=== PATIENT | female | born 1980 | race Caucasian/White ===

== ENCOUNTER 2018-07-21 16:20 | Outpatient (CLI) | payer MEDICAID ==
[~2018-07-21] VITALS: Ht 162.6 cm; Wt 95.8 kg
[2018-07-21 16:42] VITALS: Ht 162.6 cm; Wt 95.8 kg
[2018-07-21] MEDS ORDERED: PREN1TAB71 PO (16:42)
[2018-07-21 16:43] VITALS: BP 136/80
--- NOTE | 2018-07-21 17:33 | PN ---
Triage Information Date/Time Reason for visit: DFM Weeks of Gestation 26+ /Para 1/0 Diabetes: none Hypertention: none Objective Vital Signs Date Temp Pulse Resp B/P (MAP) Pulse Ox O2 O2 Flow FiO2 Time Delivery Rate 07/21/18 98.0 136/80 16:43 (98) Heart Rate: 140's Contractions: None Disposition: Discharge Assessment/Plan Ultrasound Reviewed +FM Precautions discussed' Questions answered Follow up with provider ANIBAL STEVENS M.D. Jul 21, 2018 17:33
== END 2018-07-21 17:44 | disposition home or self-care (01) ==
LOC: OBT 16:20 → L-D 16:21 → OBT 17:44
PROVIDERS: ATTEND Obstetrics & Gynecology
DX: O36.8120 Decreased fetal movements, second trimester, not applicable or unspecified (principal); O09.512 Supervision of elderly primigravida, second trimester; Z3A.26 26 weeks gestation of pregnancy
CPT/HCPCS: 76815; Z7500; G0463

== ENCOUNTER 2018-10-14 21:57 | Inpatient (IN) | payer MEDICAID ==
[~2018-10-14] VITALS: Ht 162.6 cm; Wt 95.8 kg
[~2018-10-14 21:57] MED LIST: PREN1TAB71 PO
[2018-10-14 22:00] VITALS: BP 118/85; RESP 18
[2018-10-14] MEDS ORDERED: LACTATED RINGER'S 1,000 ML IV PRN (22:21)
[2018-10-14] MEDS ORDERED: LIDOCAINE 1% (MPF) 30 ML INJ INJ PRN (22:30)
[2018-10-14] MEDS ORDERED: IBUPROFEN 600 MG TAB PO PRN (22:30)
[2018-10-14] MEDS ORDERED: MISOPROSTOL 200 MCG TAB PR PRN (22:30)
[2018-10-14] MEDS ORDERED: BUTORPHANOL 2 MG INJ IV PRN (22:30)
[2018-10-14] MEDS ORDERED: OXYTOCIN 30 UNITS/LR 500 ML IV SCH ×2 (22:30)
[2018-10-14] MEDS ORDERED: CARBOPROST 250 MCG INJ IM PRN (22:30)
[2018-10-14] MEDS ORDERED: OXYTOCIN 30 UNITS/LR 500 ML IV PRN (22:30)
[2018-10-14] MEDS ORDERED: METHYLERGONOVINE 0.2 MG INJ IM PRN (22:30)
[2018-10-14] MEDS ORDERED: AMPICILLIN 2 GM/NS (PMX) 100 ML IV ONE (22:30)
[2018-10-14] MEDS: LACTATED RINGER'S 1,000 ML IV SCH (22:42)
--- NOTE | 2018-10-14 23:18 | PREAC ---
Date/Time of Note Date/Time of Note DATE: 10/14/18 TIME: 23:17 Anesthesia Eval and Record Evaluation Time Pre-Procedure Interview DATE: 10/14/18 TIME: 23:17 Age 38 Sex female NPO: Other (na ) Preoperative diagnosis labor Planned procedure epidural Past Medical History Past Medical History: None Surgery & Anesthesia Issues No known issue Meds Anticoagulation: No Beta Arlene within 24 hr: No Reason Beta Arlene not given: Pt. not on B-Arlene Reported Medications Vit No.130/Iron/FA ( Tablet) 1 Each Tablet, 1 EACH PO 07/21/18 Current Medications Lactated Ringer's 1,000 ml @ 125 mls/hr Q8H IV Last administered on 10/14/18at 22:42; Admin Dose 125 MLS/HR; Start 10/14/18 at 22:21 Ampicillin 100 ml @ 100 mls/hr ONCE ONCE IV Last administered on 10/14/18at 22:53; Admin Dose 100 MLS/HR; Start 10/14/18 at 22:30; Stop 10/14/18 at 23:29 Ampicillin 50 ml @ 100 mls/hr Q4H IV ; Start 10/15/18 at 02:30 Butorphanol Tartrate (Stadol) 2 mg Q2H PRN IV .PAIN SCALE 6-10; Start 10/14/18 at 22:30 Lidocaine (Xylocaine 1% (Mpf)) 30 ml ONCE PRN INJ .EPISIOTOMY; Start 10/14/18 at 22:30 Oxytocin/Lactated Ringer's 500 ml @ 500 mls/hr ONCE POST IV ; Start 10/14/18 at 22:30 Oxytocin/Lactated Ringer's 500 ml @ 125 mls/hr POST IV ; Start 10/14/18 at 22:30 Ibuprofen (Motrin) 600 mg ONCE PRN PO .PAIN 1-5; Start 10/14/18 at 22:30 Lactated Ringer's 1,000 ml @ 2,000 mls/hr Q30M PRN IV .ANESTHESIA Last administered on 10/14/18at 22:43; Admin Dose 2,000 MLS/HR; Start 10/14/18 at 22:21 Oxytocin/Lactated Ringer's 500 ml @ 0 mls/hr ONCE PRN IV .VAGINAL BLEEDING; Start 7/3/19 at 22:30 Methylergonovine Maleate (Methergine) 0.2 mg ONCE PRN IM .VAGINAL BLEEDING; Start 10/14/18 at 22:30 Carboprost Tromethamine (Hemabate) 250 mcg ONCE PRN IM .VAGINAL BLEEDING; Start 10/14/18 at 22:30 Misoprostol (Cytotec) 1,000 mcg ONCE PRN IN .VAGINAL BLEEDING; Start 10/14/18 at 22:30 Meds reviewed: Yes Allergies Coded Allergies: No Known Drug Allergies (Verified Allergy, Unknown, 07/21/18) Allergies Reviewed: Yes Labs/Studies Labs Reviewed: Reviewed by anesthesiologist Result Diagram: 10/14/18 2245 Laboratory Tests 10/14/18 22:45 test: N/A Pre-procedure Exam Airway: Adequate mouth opening, Adequate thyromental dist Mallampati: Mallampati III Teeth: Normal Lung: Normal Heart: Normal ASA Physical Status ASA physical status: 2 Emergency: None Pre-operative Attestations Prior to commencing anesthesia and surgery, the patient was re-evaluated, there was verification of: *The patient's identity *The results of appropriate recent lab work and preoperative vital signs *The above evaluation not changing prior to induction *Anesthetic plan, risk benefits, alternative and complications discussed with patient/family; questions answered; patient/family understands, accepts and wishes to proceed. YASMEEN GEE DO Oct 14, 2018 23:18
[2018-10-14] MEDS ORDERED: FENTAnyl 2MCG/ML-ROPIV 0.2% 100 ML ONE (23:20)
[2018-10-14] MEDS ORDERED: FENTAnyl 50 MCG/ML VIAL ONE (23:20)
[2018-10-14] MEDS ORDERED: FENTAnyl 2MCG/ML-ROPIV 0.2% 100 ML BAG EPI SCH (23:30)
[2018-10-14] MEDS ORDERED: NALOXONE (0.4 MG/ML) INJ IV PRN (23:30)
[2018-10-15 01:21] VITALS: Ht 162.6 cm; Wt 95.8 kg
--- NOTE | 2018-10-15 02:01 | PAC ---
Date/Time of Note Date/Time of Note DATE: 10/15/18 TIME: 02:01 Post-Anesthesia Notes Post-Anesthesia Note Last documented vital signs 115/62 80 100% 18 98 Activity: WNL Respiratory function: WNL Cardiovascular function: WNL Mental status: Baseline Pain reasonably controlled: Yes Hydration appropriate: Yes Nausea/Vomiting absent: Yes YASMEEN GEE DO Oct 15, 2018 02:01
--- NOTE | 2018-10-15 02:43 | TRIAGE ---
OB Triage Datetime Report Generated by CPN: 10/15/2018 02:42 Datetime: 10/15/2018 02:36 Interventions: Side to Side; Oxygen Applied; Sterile Vaginal Exam Decelerations: Variable Vaginal Exam Dilatation (cms): 9.0 Effacement (%): 90 Station: 0 Exam By: aberumen Datetime: 10/15/2018 02:21 Decelerations: Variable Comments: VARIABLE DECELERATION FOR 60 SECONDS WITH LOWEST POINT AT 90 BPM Datetime: 10/15/2018 02:17 Stage of : Labor Maternal Assessment Level of Consciousness: Keenly Alert, Responsive DTR's/Clonus: DTRs 2+; No Clonus Headache: Denies Breath Sounds, Left: Clear and Equal Breath Sounds, Right: Clear and Equal Nausea/Vomiting: Denies RUQ Epigastric Pain: Denies Labor Evaluation Frequency: 2-3 Monitor Mode: External Duration (sec)2399: 70-80 Quality: Strong Pattern: Normal: <= 5 Contractions in 10 Minutes Resting Tone Tennyson: Relaxed Interventions: Side to Side; Sterile Vaginal Exam Heart Rate FHR Baseline Rate: 140 Monitor Mode: External US FHR Baseline Changes: No Baseline Change Variability: Moderate 6-25 bpm Accelerations: 15X15 Decelerations: None; Variable Category: Category II Pain Assessment Pain Scale: 0 Pain Presence: None/Denies Membrane Status: Ruptured Datetime: 10/15/2018 01:50 Interventions: Side to Side Decelerations: Variable Comments: VARIABLE DECELERATION FOR 80 SECONDS WITH LOWEST POINT AT 110 BPM. Datetime: 10/15/2018 01:47 Stage of : Labor Maternal Assessment Level of Consciousness: Keenly Alert, Responsive DTR's/Clonus: DTRs 2+; No Clonus Headache: Denies Breath Sounds, Left: Clear and Equal Breath Sounds, Right: Clear and Equal Nausea/Vomiting: Denies RUQ Epigastric Pain: Denies Temperature Route: Oral Labor Evaluation Frequency: 2-3 Monitor Mode: External Duration (sec)2399: 60-80 Quality: Strong Pattern: Normal: <= 5 Contractions in 10 Minutes Resting Tone Tennyson: Relaxed Interventions: Side to Side; Sterile Vaginal Exam Heart Rate FHR Baseline Rate: 125 Monitor Mode: External US FHR Baseline Changes: No Baseline Change Variability: Moderate 6-25 bpm Accelerations: 15X15 Decelerations: None; Variable Pain Assessment Pain Scale: 0 Pain Presence: None/Denies Membrane Status: Ruptured Datetime: 10/15/2018 01:39 Interventions: Side to Side Decelerations: Variable Comments: VARIABLE DECELERATION FOR 40 SECONDS WITH LOWEST FHR AT 80 BPM Datetime: 10/15/2018 01:30 Interventions: Side to Side Decelerations: Variable; Prolonged Comments: PROLONGED VARIABLE WITH LOSS OF CONTACT AND LOWEST RECORDED FHR AT 95 BPM Datetime: 10/15/2018 01:26 Vaginal Exam Dilatation (cms): 9.0 Effacement (%): 90 Station: 0 Exam By: ABERUMEN Datetime: 10/15/2018 01:19 Interventions: Side to Side Decelerations: Variable Comments: VARIABLE DECELERATION FOR 50 SECONDS WITH LOWEST POINT AT 100 BPM Datetime: 10/15/2018 01:17 Stage of : Labor Maternal Assessment Level of Consciousness: Keenly Alert, Responsive DTR's/Clonus: DTRs 2+; No Clonus Headache: Denies Breath Sounds, Left: Clear and Equal Breath Sounds, Right: Clear and Equal Nausea/Vomiting: Denies RUQ Epigastric Pain: Denies Labor Evaluation Frequency: 2-3 Duration (sec)2399: 60-80 Quality: Strong Pattern: Normal: <= 5 Contractions in 10 Minutes Resting Tone Tennyson: Relaxed Interventions: Side to Side Heart Rate FHR Baseline Rate: 140 FHR Baseline Changes: No Baseline Change Variability: Moderate 6-25 bpm Accelerations: 15X15 Decelerations: None; Variable Category: Category II Pain Assessment Pain Scale: 0 Pain Presence: None/Denies Membrane Status: Ruptured Datetime: 10/15/2018 01:09 Decelerations: Variable Comments: VARIABLE DECELERATION FOR 70 SECONDS WITH LOWEST FHR AT 95 BPM Datetime: 10/15/2018 00:56 Interventions: Side to Side Comments: VARIABLE DECELERATION FOR 50 SECONDS WITH LOWEST FHR OF 100 BPM Datetime: 10/15/2018 00:45 Assessment Type: Admission Assessment Vaginal Bleeding: None Maternal Assessment Level of Consciousness: Keenly Alert, Responsive DTR's/Clonus: DTRs 2+; No Clonus Headache: Denies Blurred Vision: No Respiratory Effort: Unlabored; Regular Rhythm; Equal Expansion Breath Sounds, Left: Clear and Equal Breath Sounds, Right: Clear and Equal Nausea/Vomiting: Denies RUQ Epigastric Pain: Denies Lower Extremities Edema: Bilateral Lower Extremities Degree: 1+ Upper Extremities Edema: None Facial Edema: None Fall Risk Assessment History of Falling: (0) No Secondary Diagnosis: (0) No Ambulatory Aid: (0) Bedrest/Nurse Assist IV Therapy: (20) Yes Gait: (0) Normal/Bedrest/Immobile Mental Status: (0) Oriented to Own Ability Fall Score: 20 Fall Risk Score Definition: No Risk: No action required Labor Evaluation Frequency: 2-3 Monitor Mode: External Duration (sec)2399: 50-60 Quality: Strong Pattern: Normal: <= 5 Contractions in 10 Minutes Resting Tone Tennyson: Relaxed Heart Rate FHR Baseline Rate: 140 Monitor Mode: External US Variability: Moderate 6-25 bpm Accelerations: 15X15 Decelerations: None Category: Category I Pain Presence: None/Denies Membrane Status: Ruptured Datetime: 10/15/2018 00:40 Stage of : Labor Maternal Assessment Level of Consciousness: Keenly Alert, Responsive Labor Evaluation Frequency: 140 Monitor Mode: External Duration (sec)2399: 60-90 Quality: Strong Pattern: Normal: <= 5 Contractions in 10 Minutes Resting Tone Tennyson: Relaxed Heart Rate FHR Baseline Rate: 140 Monitor Mode: External US Variability: Moderate 6-25 bpm Accelerations: 15X15 Decelerations: None Category: Category I Datetime: 10/15/2018 00:13 Stage of : Labor Datetime: 10/15/2018 00:10 Labor Evaluation Frequency: 2-3 Monitor Mode: External Quality: Strong Pattern: Normal: <= 5 Contractions in 10 Minutes Resting Tone Tennyson: Relaxed Heart Rate FHR Baseline Rate: 150 Monitor Mode: External US FHR Baseline Changes: No Baseline Change Variability: Moderate 6-25 bpm Accelerations: 15X15 Decelerations: None Category: Category I Pain Assessment Pain Scale: 0 Pain Presence: None/Denies Pain Type: N/A Vaginal Exam Dilatation (cms): 8.0 Effacement (%): 90 Station: 0 Exam By: TING Linton RN Amniotic Fluid Color: Light Meconium Vaginal Bleeding: Small Cervix, Consistency: Soft Cervix, Position: Anterior Presentation 'A': Cephalic Datetime: 10/14/2018 23:58 Time of Arrival: 10/14/2018 21:50 EGA: 38.5 Arrived By: Wheelchair Arrived From: Home Chief Complaint: c/o uc's and leaking Movement: Present Contractions: Regular Contractions: 5 MINUTES Rupture of Membranes: Ruptured Vaginal Bleeding: None Vaginal Discharge: Denies Recent Sexual Intercouse: Denies Abdominal Trauma: Not Applicable Patient Complaints: Contractions Time Provider Notified: 10/14/2018 22:19 Provider Notified: FERMÍNDAANDRE Initial Plan: EFM, SVE Datetime: 10/14/2018 23:52 Vaginal Exam Dilatation (cms): 6.5 Datetime: 10/14/2018 23:51 Labor Evaluation Frequency: 2-3 Monitor Mode: External Duration (sec)2399: 50 Quality: Moderate Pattern: Normal: <= 5 Contractions in 10 Minutes Resting Tone Tennyson: Relaxed Heart Rate FHR Baseline Rate: 150 Monitor Mode: External US FHR Baseline Changes: No Baseline Change Variability: Moderate 6-25 bpm Accelerations: 15X15 Decelerations: None Category: Category I Pain Assessment Pain Scale: 5 Pain Presence: Intermittent Pain Type: Dull; Ache Pain Location: Abdomen Pain Goal: 2 Pain Relief Measures: Epidural Given Datetime: 10/14/2018 23:43 Pain Assessment Pain Scale: 8 Datetime: 10/14/2018 23:31 Heart Rate FHR Baseline Rate: 145 FHR Baseline Changes: No Baseline Change Variability: Moderate 6-25 bpm Accelerations: 15X15 Decelerations: None Category: Category I Datetime: 10/14/2018 23:20 Stage of : Labor Maternal Assessment Level of Consciousness: Keenly Alert, Responsive Heart Rate FHR Baseline Rate: 145 Monitor Mode: External US FHR Baseline Changes: No Baseline Change Variability: Moderate 6-25 bpm Accelerations: 15X15 Decelerations: None Category: Category I Pain Assessment Pain Scale: 9 Pain Presence: Intermittent Pain Type: Cramping; Sharp; Contraction Pain Location: Abdomen; Back Pain Relief Measures: Comfort Measures Datetime: 10/14/2018 23:18 Vaginal Exam Dilatation (cms): 6.5 Effacement (%): 90 Station: 0 Exam By: TING F. RN Datetime: 10/14/2018 22:44 Stage of : Labor Maternal Assessment Level of Consciousness: Keenly Alert, Responsive DTR's/Clonus: DTRs 2+ Headache: Denies Blurred Vision: No Nausea/Vomiting: Denies RUQ Epigastric Pain: Denies Facial Edema: None Pain Assessment Pain Scale: 9 Pain Presence: Intermittent Pain Type: Burning; Cramping; Sharp; Contraction; Ache Pain Location: Abdomen; Back Pain Goal: 2 Pain Relief Measures: Comfort Measures Pain Assessment Comments: FOB AT BEDSIDE...PLAN OF CARE DISCUSSED FOR C. EPIDURAL ANESTHESIA Membrane Status: Ruptured Membranes Rupture Method: Spontaneous Amniotic Fluid Color: Light Meconium Amniotic Fluid Amount: Moderate Amniotic Fluid Odor: None Datetime: 10/14/2018 22:27 Stage of : Labor Datetime: 10/14/2018 22:10 Vaginal Exam Dilatation (cms): 5.0 Effacement (%): 80 Station: -2 Exam By: beth aguila RN Datetime: 10/14/2018 21:50 Membrane Status: Ruptured Membranes Ruptured Date/Time: 10/14/2018 21:50 Membranes Rupture Method: Spontaneous Amniotic Fluid Color: Light Meconium Amniotic Fluid Amount: Moderate Amniotic Fluid Odor: Normal Datetime: 07/21/2018 16:36 Comments: INOFRMED PATIENT SENT FOR [facility]- ORDER TO D/C HOME Datetime: 07/21/2018 16:30 Stage of : OB Triage Assessment Type: Triage Maternal Assessment Level of Consciousness: Fully Conscious DTR's/Clonus: DTRs 2+; No Clonus Headache: Denies Blurred Vision: No Respiratory Effort: Unlabored; Regular Rhythm; Equal Expansion Breath Sounds, Left: Clear and Equal Breath Sounds, Right: Clear and Equal Nausea/Vomiting: Denies RUQ Epigastric Pain: Denies Lower Extremities Edema: None Degree: None Upper Extremities Edema: None Degree: None Facial Edema: None Temperature Route: Oral Fall Risk Assessment History of Falling: (0) No Secondary Diagnosis: (0) No Ambulatory Aid: (0) Bedrest/Nurse Assist IV Therapy: (0) No Gait: (0) Normal/Bedrest/Immobile Mental Status: (0) Oriented to Own Ability Fall Score: 0 Fall Risk Score Definition: No Risk: No action required Monitor Mode: External Monitor Mode: External US Pain Assessment Pain Scale: 0 Pain Presence: None/Denies Datetime: 07/21/2018 16:28 Time of Arrival: 07/21/2018 16:13 EGA: 26.4 Arrived By: Ambulatory Arrived From: Office Chief Complaint: SENT FOR DFM Movement: Decreased Contractions: Denies/Absent Rupture of Membranes: Denies Vaginal Bleeding: None Vaginal Discharge: Denies Recent Sexual Intercouse: Denies Abdominal Trauma: Not Applicable Patient Complaints: Other Initial Plan: KELLEN MARTIN MD
[2018-10-15] MEDS: LACTATED RINGER'S 1,000 ML IV SCH ×3 (04:57→15:37)
[2018-10-15] MEDS: AMPICILLIN 1 GM/NS (PMX) 50 ML IV SCH ×3 (05:02→12:48)
[2018-10-15] MEDS ORDERED: OXYTOCIN 30 UNITS/LR 500 ML IV SCH ×2 (09:00→20:03)
[2018-10-15] MEDS ORDERED: SOD CHLORIDE 0.9% 1,000 ML IV PRN (14:00)
--- NOTE | 2018-10-15 15:17 | HP ---
Date/Time of Note Date/Time of Note DATE: 10/15/18 TIME: 15:16 OB - History Hx of Present Free Text/Dictation active labor Care: Good Care Ultrasounds: Normal mid trimester US Obstetrical Complications: None Medical Complications: None Past Family/Social History * Past Medical, Surgical, Family and Obstetric Histories reviewed from chart. OB Admission Exam Vital Signs Vital Signs Vital Signs Date Temp Pulse Resp B/P (MAP) Pulse Ox O2 O2 Flow FiO2 Time Delivery Rate 10/14/18 98.7 18 118/85 Room Air 22:00 (96) Physical Exam HEENT: WNL Heart: Rhythm Normal Lungs: Clear, Equal Abdomen: WNL Extremities: Normal Reflexes: Normal Cervical Dilatation: 9cm Effacement: 100% Station: 0 Membranes: Ruptured Amniotic Fluid: Clear Heart Rate: 130's Accelerations: Accelerations Present Decelerations: Variable Decelerations Varibility: Moderate Contractions on Admission: 6-10 Minutes Apart Intensity: Moderate Last 72 hourBlood Glucose Bedside Glucose - 72 Hours Test 10/15/18 02:12 10/15/18 08:29 10/15/18 13:36 Bedside Glucose 147 mg/dL (70-220) 119 mg/dL (70-220) 122 mg/dL (70-220) Last 72 hours Lab Results CBC & BMP 10/14/18 22:45 OB Assessment/Plan Reason for admission: active labor Plan: Expectant Management ANSHUL FLOYD MD Oct 15, 2018 15:17
[2018-10-15] MEDS ORDERED: CEFAZOLIN 2 GM/50 ML (PMX) 50 ML IVPB ONE (15:34)
[2018-10-15] MEDS ORDERED: morphine SULFATE/PF (10 MG/10 ML) INJ ONE (15:50)
[2018-10-15] MEDS ORDERED: OXYTOCIN 30 UNITS/LR 500 ML BAG IV ONE (15:50)
[2018-10-15] MEDS ORDERED: PHENYLephrine 10 MG INJ ONE (15:54)
[2018-10-15] MEDS ORDERED: OXYTOCIN 10 UNIT INJ ONE (15:55)
[2018-10-15] MEDS ORDERED: ONDANSETRON 4 MG INJ ONE (15:55)
[2018-10-15] MEDS ORDERED: OXYTOCIN 30 UNITS/LR 500 ML IV PRN ×2 (16:00→20:30)
[2018-10-15] MEDS ORDERED: MISOPROSTOL 200 MCG TAB PR PRN ×2 (16:00→20:30)
[2018-10-15] MEDS ORDERED: METHYLERGONOVINE 0.2 MG INJ IM PRN ×2 (16:00→20:30)
[2018-10-15] MEDS ORDERED: CEFAZOLIN 2 GM/50 ML (PMX) 50 ML IVPB SCH (16:00)
[2018-10-15] MEDS ORDERED: CARBOPROST 250 MCG INJ IM PRN ×2 (16:00→20:30)
--- NOTE | 2018-10-15 16:23 | OPR ---
Operative Report Planned Procedure Procedure date Oct 15, 2018 Procedure(s) term preg for primary c/s Performed by see signature line Internet Merchant: MARISOL LEAVITT MD Pre-procedure diagnosis CPD [id number] Anesthesia Type: [id number] spinal Post-Procedure Post-procedure diagnosis SAME Findings Live Baby [], Apgars [] and [], weight [], position [], [] presentation []cord. Estimated Blood Loss: 600 - 700 mls Specimen(s) none Grafts/Implant(s) none Complication(s) none Pt Condition post procedure: stable Disposition: PACU Procedure Description Under satisfactory [SPINAL ] anesthesia, the patient was prepped and draped and placed in a supine position, tilted to the left. Pfannenstiel incision was made, carried through the subcutaneous tissue. Bleeders brought under control with electrocautery. Fascia incised to the length of the incision. Rectus muscles from the fascia, divided midline. Peritoneum exposed, entered through a transverse incision. Exploration of abdomen revealed gravid uterus. Bladder flap was developed. Transverse incision was made in the lower segment of the uterus. Amniotic sac ruptured. [MECONIUM] amniotic fluid noted. [] Nasal oropharyngeal suction was performed. The baby was handed to the team for immediate attention. The placenta was delivered manually intact. Uterine cavity was cleaned with wet sponge and drainage established. Uterus closed in 2 layers using ONE MONOCRYL[] in continuous fashion. Peritoneal cavity irrigated with warm saline. Sponge, needle and instrument count reported to be correct. Abdominal peritoneum closed with [] continuously. Rectus muscle approximated with []. Fascia closed with ONE MONOCRYL[], and skin closed with laura. Estimated blood loss 700[]mL. ANSHUL FLOYD MD Oct 15, 2018 16:23
--- NOTE | 2018-10-15 16:43 | PAC ---
Date/Time of Note Date/Time of Note DATE: 10/15/18 TIME: 16:42 Post-Anesthesia Notes Post-Anesthesia Note Last documented vital signs Vital Signs Date Temp Pulse Resp B/P (MAP) Pulse Ox O2 O2 Flow FiO2 Time Delivery Rate 10/14/18 98.7 18 118/85 Room Air 22:00 (96) Activity: WNL Respiratory function: WNL Cardiovascular function: WNL Mental status: Baseline Pain reasonably controlled: Yes Hydration appropriate: Yes Nausea/Vomiting absent: Yes Comments BP:112/56, 78, Spo2:100%, T:98,9 KISHORE DEAL MD Oct 15, 2018 16:42
[2018-10-15] MEDS ORDERED: morphine 2 MG INJ IV PRN (17:00)
[2018-10-15] MEDS ORDERED: DIPHENHYDRAMINE 50 MG INJ IV PRN (17:00)
[2018-10-15] MEDS ORDERED: ONDANSETRON 4 MG INJ IV PRN (17:00)
[2018-10-15] MEDS ORDERED: NALOXONE (0.4 MG/ML) INJ IV PRN (17:00)
[2018-10-15] MEDS: KETOROLAC 30 MG INJ IV PRN (19:27)
[2018-10-15 20:00] VITALS: BP 100/54; PULSE 68; RESP 18
[2018-10-15] MEDS ORDERED: LACTATED RINGER'S 1,000 ML IV SCH (20:03)
[2018-10-15] MEDS ORDERED: NACL 0.9% 3 ML SYG IV SCH (20:30)
[2018-10-15] MEDS ORDERED: LANOLIN HPA 1 PKT TOP PRN (20:30)
[2018-10-15] MEDS ORDERED: NA PHOSPHATE/BIPHOS 133 ML ENEMA PR PRN (20:30)
[2018-10-16] VITALS (9 sets, daily range): BP systolic 90–119; BP diastolic 52–67; PULSE 62–100; RESP 16–20
[2018-10-16] MEDS: KETOROLAC 30 MG INJ IV PRN ×2 (06:01→12:46)
--- NOTE | 2018-10-16 06:48 | QN ---
Documentation Comment doing well vss abd soft d/c IV d/c home next am ANSHUL FLOYD MD Oct 16, 2018 06:48
--- NOTE | 2018-10-16 06:49 | DS ---
Date/Time of Note Date/Time of Note DATE: 10/16/18 TIME: 06:48 Discharge Summary Admission/Discharge Info Admit Date/Time Oct 14, 2018 at 22:19 Discharge Date/Time Discharge Diagnosis term Patient Condition: Stable Procedures primary c/s for cpd Hospital Course unremarkable Home Meds Reported Medications Vit No.130/Iron/FA ( Tablet) 1 Each Tablet, 1 EACH PO 07/21/18 Primary Care Provider Care Physician No Primary Pending Labs Laboratory Tests Test 10/15/18 08:29 10/15/18 13:36 Bedside Glucose 119 mg/dL (70-220) 122 mg/dL (70-220) ANSHUL FLOYD MD Oct 16, 2018 06:49
[2018-10-16] MEDS: LACTATED RINGER'S 1,000 ML IV SCH ×3 (12:54→22:21)
[2018-10-16] MEDS: HYDROCODONE/APAP (5/325) TAB PO PRN (19:04)
--- NOTE | 2018-10-16 19:54 | DELSUM ---
Delivery Summary A-C Datetime Report Generated by CPN: 10/16/2018 19:54 DELIVERY PERSONNEL Rn Long Term Care: Mao, Kasey MATERNAL INFORMATION Delivery Anesthesia: Epidural Medications in Delivery: SEE ANESTHESIA RECORDS Delivery QBL (ml): 600 Placenta Cultured: No Maternal Complications: None LABOR SUMMARY EDC: 10/23/2018 00:00 No. Babies in Womb: 1 Attempted: No Labor Anesthesia: Epidural LABOR INFORMATION Reason for Induction: Not Applicable Onset of Labor: 10/14/2018 20:00 Complete Dilatation: 10/15/2018 14:50 Group B Beta Strep: Done, Result Unknown Antibiotics # of Doses: 5 Antibiotics Time of Last Dose: 10/15/2018 15:50 Steroids Given: None Reason Steroids Not Administered: Not Applicable MEMBRANES Membranes Rupture Method: Spontaneous Rupture of Membranes: 10/14/2018 21:50 Length of Rupture (hr): 18.25 Amniotic Fluid Color: Light Meconium Amniotic Fluid Amount: Moderate Amniotic Fluid Odor: None STAGES OF LABOR Stage 1 hr: 18 Stage 1 min: 50 Stage 2 hr: 1 Stage 2 min: 15 Stage 3 hr: 0 Stage 3 min: 1 Total Time in Labor hr: 20 Total Time in Labor min: 6 CSECTION DELIVERY Primary Indication: Failure of Descent Secondary Indication: Nonreassuring Stat CSection Urgency: Non Elective CSection Incidence: Primary Labor: Labor Elective: N/A CSection Incision: Lower Uterine Transverse BABY A INFORMATION Delivery Date/Time: 10/15/2018 16:05 Method of Delivery: Born in Route : No : N/A Forceps: N/A Vacuum Extraction: N/A Shoulder Dystocia : No SHOULDER DYSTOCIA BABY A Infant Delivery Date/Time: 10/15/2018 16:05 PRESENTATION/POSITION BABY A Presentation: Cephalic Cephalic Presentation: Vertex Vertex Position: Left Occipital Anterior Breech Presentation: N/A PLACENTA INFORMATION BABY A Placenta Delivery Time : 10/15/2018 16:06 Placenta Method of Delivery: Manual Removal Placenta Status: Delivered SCORES BABY A Heart Rate 1 min: >100 bpm Resp Effort 1 min: Good Cry Reflex Irritability 1 min: Cough/Sneeze/Pulls Away Muscle Tone 1 min: Active Motion Color 1 min: Blue/Pale Resuscitation Effort 1 min: Tactile Stimulation SCORE 1 MIN: 8 Heart Rate 5 min: >100 bpm Resp Effort 5 min: Good Cry Reflex Irritability 5 min: Cough/Sneeze/Pulls Away Muscle Tone 5 min: Active Motion Color 5 min: Body Fidelity, Extremit Blue Resuscitation Effort 5 min: Tactile Stimulation SCORE 5 MIN: 9 INFORMATION BABY A Gestational Age at Delivery: 38.6 Gestational Status: Early Term- 37- 38.6 Weeks Infant Outcome : Liveborn, with signs of life Infant Condition : Stable Infant Sex: Male IDENTIFICATION/MEDS BABY A ID Band Number: [id number] ID Band Location: Right Leg; Left Arm Sensor Applied: Yes Sensor Number: [id number] Sensor Location : Cord Clamp Vitamin K Given : Not Given Erythromycin Given: Not Given WEIGHT/LENGTH BABY A Birthweight (gm): 3550 Weight (lb): 7 Weight (oz): 13 Length (in): 20.50 Length (cm): 52.07 CORD INFORMATION BABY A No. Cord Vessels: 3 Nuchal Cord : Around Neck x1, Tight Cord Blood Taken: Yes Infant Suction: Mouth; Nose ASSESSMENT BABY A Infant Complications: Multiple Variable Decels Physical Findings at Delivery: Caput Succedaneum; Molding of the Head; Within Normal Limits Respirations: Appears Normal Integration Consultant/ALS Called : No Care By: Chris Cintron RN Transferred To: Remains with Mother
[2018-10-17] MEDS: HYDROCODONE/APAP (5/325) TAB PO PRN ×2 (00:36→15:47)
[2018-10-17 03:29] VITALS: BP 102/52; PULSE 90; RESP 20
[2018-10-17] MEDS: IBUPROFEN 800 MG TAB PO SCH ×2 (05:46→13:59)
[2018-10-17] MEDS: LACTATED RINGER'S 1,000 ML IV SCH ×2 (06:21→14:21)
[2018-10-17 08:30] VITALS: BP 96/52; PULSE 77; RESP 18
[2018-10-18] MEDS ORDERED: MEASLES,MUMPS,RUBELLA VACCINE INJ SC* ONE (09:00)
[2018-10-18] MEDS ORDERED: DIPHTH/TET/ACEL PERTUSS (ADULT) 0.5 ML VIAL IM* ONE (09:00)
== END 2018-10-17 16:20 | disposition home or self-care (01) | DRG 788 ==
LOC: OBT 21:57 → L-D 21:58 → OBT 22:19 → L-D 10-15 15:42 → MS1 10-15 19:50
PROVIDERS: ADMIT Obstetrics & Gynecology; ATTEND Obstetrics & Gynecology
PROC: 10D00Z1 Extraction of Products of Conception, Low, Open Approach (ICD-10-PCS; principal; 2018-10-15 15:45)
DX: O82 Encounter for cesarean delivery without indication (principal); Z3A.38 38 weeks gestation of pregnancy; Z37.0 Single live birth; O24.410 Gestational diabetes mellitus in pregnancy, diet controlled
CPT/HCPCS: 62322; 82947; 82962; 85025; 85610; 85730; 86592; 86850; 86900; 86901; 87340; 88307; 99464; G0463; J0290; J0690; J1885; J2210; J2274; J2370; J2405; J2590; J3010; J7120